=== PATIENT | female | born 1985 ===

== ENCOUNTER 2017-02-21 00:08 | Emergency (ER) | payer OTHER ==
[2017-02-21 00:27] VITALS: TEMP 99.1
[2017-02-21 01:53] LABS: BASO # 0.1 K/uL (0.0-0.2); BASO % 1.2 % (0.0-2.0); EOS # 0.1 K/uL (0.0-0.7); EOS % 0.7 % (0.0-4.0); HEMOGLOBIN 12.5 g/dL (12.0-16.0); LYMPH # 1.6 K/uL (1.0-4.3); MEAN CELL VOLUME 84.2 fl (81.0-99.0); MEAN CORPUSCULAR HEMOGLOBIN 27.6 pg (27.0-31.0); MEAN CORPUSCULAR HGB CONC 32.8 g/dL (33.0-37.0); MEAN PLATELET VOLUME 7.5 fl (7.2-11.7); MONO # 0.6 K/uL (0.0-0.8); MONO % 7.1 % (0.0-10.0); NEUT # 6.6 K/uL (1.8-7.0); RBC 4.54 Mil/uL (3.80-5.20); RED CELL DISTRIBUTION WIDTH 14.6 % (11.5-14.5); WHITE BLOOD COUNT 9.1 K/uL (4.8-10.8)
[2017-02-21 02:09] LABS: ALB/GLOB RATIO 1.1 (1.0-2.1); ALBUMIN 3.9 g/dL (3.5-5.0); ALT/SGPT 34 U/L (9-52); AST/SGOT 17 U/L (14-36); BLOOD UREA NITROGEN 15 mg/dl (7-17); CALCIUM 8.8 mg/dL (8.4-10.2); GFR AFRICAN-AMERICAN > 60; GFR NON-AFRICAN AMERICAN > 60
[2017-02-21 02:59] VITALS: BP 117/72; PULSE 72; RESP 18; O2SAT 99
--- NOTE | 2017-02-21 03:13 | ED PDOC ---
HPI: Chest Pain Time Seen by Provider: 02/21/17 00:38 Chief Complaint (Nursing): Palpitations Chief Complaint (Provider): Palpitations History Per: Patient History/Exam Limitations: no limitations Onset/Duration Of Symptoms: Mins (just prior to arrival) Current Symptoms Are (Timing): Still Present Additional Complaint(s): 31 y/o female with a history of asthma, presents to the ED complaining of palpitations, onset of just prior to arrival. Patient reports of sustaining a 30 minute episode of rapid palpitations. She claims to have a history of anxiety, but states that this episode didn't feel the same. She denies chest pain, shortness of breath, fever, nausea, diarrhea, and measured her heart rate for a high of 120 bpm. Of note, the patient's palpitations resolved upon arrival to the ED. PCP: Georgia Roblero Past Medical History Reviewed: Historical Data, Nursing Documentation, Vital Signs Vital Signs: Last Vital Signs Temp 99.1 F 02/21/17 00:24 Pulse 72 02/21/17 02:59 Resp 18 02/21/17 02:59 BP 117/72 02/21/17 02:59 Pulse Ox 99 02/21/17 03:24 - Medical History PMH: Asthma, Fractures (Right Ankle) - Surgical History Other surgeries: Dislocated Right ankle with ligament repair - Family History Family History: States: Unknown Family Hx - Social History Current smoker - smoking cessation education provided: No Ex-Smoker (has not smoked in the last 12 months): No Alcohol: None Drugs: Denies - Home Medications Home Medications: Ambulatory Orders Medication Instructions Recorded Guaifen/Phenyleph/Acetaminophn 1 tab PO BID #14 tab 02/01/15 [Mucinex Fast-Max Cold & Sinus 325 mg-200 mg-5] Ibuprofen [Motrin Tab] 800 mg PO Q6H PRN #20 tab 02/01/15 Dicyclomine [Dicyclomine HCl] 10 mg PO TID #10 cap 02/19/16 Ondansetron [Zofran] 4 mg PO Q8H #10 tab 02/19/16 - Allergies Allergies/Adverse Reactions: Allergies Allergy/AdvReac Type Severity Reaction Status Date / Time No Known Allergies Allergy Verified 12/15/15 23:32 Review of Systems ROS Statement: Except As Marked, All Systems Reviewed And Found Negative Constitutional: Negative for: Fever Cardiovascular: Negative for: Chest Pain Respiratory: Negative for: Shortness of Breath Gastrointestinal: Negative for: Nausea, Abdominal Pain Physical Exam - Reviewed Nursing Documentation Reviewed: Yes Vital Signs Reviewed: Yes - Physical Exam Appears: Positive for: Non-toxic, No Acute Distress Head Exam: Positive for: ATRAUMATIC, NORMOCEPHALIC Skin: Positive for: Normal Color, Warm Eye Exam: Positive for: Normal appearance, EOMI, PERRL ENT: Positive for: Normal ENT Inspection Neck: Positive for: Normal, Painless ROM, Supple Cardiovascular/Chest: Positive for: Regular Rate, Rhythm. Negative for: Murmur Respiratory: Positive for: Normal Breath Sounds, Respiratory Distress Gastrointestinal/Abdominal: Positive for: Normal Exam, Soft. Negative for: Tenderness Back: Positive for: Normal Inspection Extremity: Positive for: Normal ROM. Negative for: Pedal Edema, Deformity Neurologic/Psych: Positive for: Alert, Oriented. Negative for: Motor/Sensory Deficits - Laboratory Results Result Diagrams: 02/21/17 01:40 02/21/17 01:40 - ECG O2 Sat by Pulse Oximetry: 99 (RA) Pulse Ox Interpretation: Normal Medical Decision Making Medical Decision Making: Time: --01:16 Impression: --31 y/o female with palpitations Plan: --ECG --Acetaminophen 650 mg Reassess --Labs reviewed show no clinically significant abnormalities Patient stable for discharge home Dx Palpitations Stable FU with PCP in 1-2 days Scribe Attestation: Documented by Michael Mckinley acting as a scribe for Ck Bal MD. Disposition - Clinical Impression Clinical Impression: Palpitations - Disposition Referrals: Georgia Roblero MD [Primary Care Provider] - Disposition: Routine/Home Disposition Time: 03:00 Condition: STABLE Instructions: Palpitations (ED) Forms: [employer] (Persian)
--- NOTE | 2017-02-21 10:48 | CARD ---
APPROVED REPORT EKG Measurement Heart [id number] <Conclusion> Normal sinus rhythm Nonspecific ST abnormality Abnormal ECG
== END 2017-02-21 03:10 | disposition home or self-care (01) ==
LOC: H.ER 00:08
DX: R00.2 Palpitations (principal); F41.9 Anxiety disorder, unspecified

== ENCOUNTER → 2017-06-23 18:36 | Emergency (ER) | payer OTHER ==
[2017-06-23 18:47] VITALS: BP 162/96; PULSE 100; RESP 20; TEMP 98.5; O2SAT 99
== END | disposition left against medical advice (07) ==
LOC: H.ER 18:36
DX: Z02.89 Encounter for other administrative examinations (principal)